=== PATIENT | male | born 1980 | race Caucasian/White ===

== ENCOUNTER 2018-07-23 22:48 | Emergency (ER) | payer MEDICAID | END 2018-07-25 01:25 ==

== ENCOUNTER 2018-07-31 04:27 | Emergency (ER) | payer MEDICAID | END 2018-07-31 11:50 | disposition home or self-care (01) ==

== ENCOUNTER 2018-08-05 17:08 | Emergency (ER) | payer MEDICAID | END 2018-08-05 20:41 | disposition home or self-care (01) ==